=== PATIENT | male | born 1985 | race American Indian/Alaskan Native ===

== ENCOUNTER 2018-09-14 07:53 | Emergency (ER) | payer SELFPAY ==
[2018-09-14] MEDS ORDERED: TORADOL IM ONE (09:06)
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
--- NOTE | 2018-09-14 09:58 | Cat Scan Report ---
CT HEAD WITHOUT CONTRAST INDICATION: Headache. COMPARISON: None similar at this institution. FINDINGS: Noncontrast head CT demonstrates normal ventricles and sulci. Patent cavum septum pellucidum and vergae. No acute infarct, hemorrhage, mass effect or midline shift. No abnormal extra axial fluid collections. Normal posterior fossa with preserved basilar cisterns. Unremarkable eye globes. Approximately 2 cm left maxillary sinus polypoid mucosal thickening or retention cyst inferiorly partially imaged. Clear remainder imaged paranasal sinuses and mastoid air cells. Slight nasal septal deviation and approximately 1 mm rightward nasal septal spur. Normal calvarium and scalp. CONCLUSION: No acute intracranial CT abnormality with left maxillary sinus disease noted, as described. Please correlate. Thank you for the opportunity to participate in this patient's care.
[2018-09-16 11:36] VITALS: BP 140/82
== END 2018-09-14 10:44 | disposition home or self-care (01) ==
LOC: ED 07:53
DX: J01.00 Acute maxillary sinusitis, unspecified (principal); G44.209 Tension-type headache, unspecified, not intractable; F17.200 Nicotine dependence, unspecified, uncomplicated; F12.10 Cannabis abuse, uncomplicated
CPT/HCPCS: 70450; 96372; 99283; J1885